=== PATIENT | male | born 2000 | race Caucasian/White ===

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

== ENCOUNTER 2019-11-02 14:17 | Emergency (ER) | payer BC, SELFPAY ==
[2019-11-02 14:25] VITALS: BP 139/84; PULSE 95; RESP 19; TEMP 36.6; O2SAT 99; BMI 27.7
--- NOTE | 2019-11-02 14:34 | HMH.EDUTC ---
[facility] [place] Disposition Clinical Impression: Right upper quadrant abdominal pain Disposition: Home, Self-Care Condition on Discharge: Good Instructions: DI for Abdominal Pain-Adult Additional Instructions: Return to clinic/ER if pain worsens, vomiting is severe, fever, etc. Call PCP Monday to schedule RUQ US Prescriptions: Dicyclomine HCl [Bentyl 10mg capsule] 10 mg PO QID #40 cap [facility] Ondansetron [Ondansetron Odt 8mg Tab] 8 mg PO TID PRN #30 tab PRN Reason: Nausea Transmission Status: [facility] Referrals: Humberto Tidwell [Primary Care Provider] - Time of Disposition: 14:38 Medical Decision Making - Dhiraj Inquiry Pt receiving controlled substance: No Vital Signs: 11/02/19 14:25 Temperature 97.8 F Temperature Source Oral Pulse Rate [Radial] 95 H Respiratory Rate 19 Blood Pressure [Right Arm] 139/84 Blood Pressure Mean [Right Arm] 102 Blood Pressure Source [Right Arm] Automatic Cuff Blood Pressure Position [Right Arm] Sitting 02 Sat by Pulse Oximetry 99 Oxygen Delivery Method Room Air [facility] [place] HPI - General Stated complaint: abd nausa Time Seen by Provider: 11/02/19 14:34 Mode of Arrival: Ambulatory Source of Information: Patient Limitations: No Limitations Description of Symptoms (Recalled from Triage Doc. by RN): right upper quad pain that started this morning around 6 am. States that he has been nauseous. HEENT Symptoms (Recalled from RN notes): No Resp Symptoms (Recalled from RN notes): No Skin Symptoms (Recalled from RN notes): No MS Symptoms (Recalled from RN notes): No Functional Status (Recalled from RN notes): wnl - History of Present Illness Provider Complaint: Abdominal pain and nausea since early this am. No fever. No diarrhea. Hurts in right upper quadrant. No prior similar pain. Still has gallbladder. Ate chicken and fries last night. Onset (ago): hour(s) (8) Location: abdomen Quality: sharp Consistency: constant Associated symptoms: nausea/vomiting Treatments prior to arrival: none - Related Data Previous Rx's Medication Instructions Recorded Oseltamivir Phosphate [Tamiflu 75 mg PO BID #10 cap 04/01/17 75mg Capsule] Dicyclomine HCl [Bentyl 10mg 10 mg PO QID #40 cap 11/02/19 capsule] Ondansetron [Ondansetron Odt 8mg 8 mg PO TID PRN #30 tab 11/02/19 Tab] Allergies Allergy/AdvReac Type Severity Reaction Status Date / Time No Known Allergies Allergy Verified 04/16/17 15:32 - Worker's Comp Is this a Worker's Comp case?: No [facility] History - Hepatitis A Screen Drug use history?: No High risk sexual behaviors?: No History of sexually transmitted infection?: No Currently employed?: No Childcare worker?: No Do you have indoor plumbing?: Yes Do you have electricity?: Yes Attestation statement:: This patient has been screened for Hepatitis A risk factors. I have reviewed the patient's past medical history: Yes Medical History: Denies:: Cancer, Diabetes Mellitus Type 1, Diabetes Mellitus Type 2, MRSA Amputation: No Fractures: No - Social History Smoking Status: Never smoker Alcohol Intake: never Occupational Status: other Housing: house ROS Obtained: Yes All systems reviewed & no additional complaints - Gastrointestinal Gastrointestingal: Reports: abdominal pain, nausea, vomiting Physical Exam - General General appearance: alert, in no apparent distress - Head Head exam: normocephalic - Eye Eye exam: Present: PERRL - ENT ENT exam: Present: normal oropharynx - Respiratory Respiratory exam: Present: normal lung sounds bilaterally - Cardiovascular Cardiovascular exam: Present: regular rate, normal rhythm - Abdominal Exam Abdominal exam: Present: tenderness, Mcmanus's sign Abdominal tenderness: Present: RUQ - exam: Present: normal inspection - Extremities Exam Extremities exam: Present: normal inspection - Neurological Exam
[2019-11-02 14:44] VITALS: BP 139/84; PULSE 95; RESP 19; TEMP 36.6; O2SAT 99
== END 2019-11-02 14:45 | disposition home or self-care (01) ==
PROVIDERS: Emergency Provider Physician Assistant; PCP Family Medicine
DX: R10.11 Right upper quadrant pain (principal); R11.0 Nausea
CPT/HCPCS: 99201

== ENCOUNTER → 2019-11-08 09:18 | Outpatient (CLI) | payer BC, SELFPAY ==
--- NOTE | 2019-11-08 09:30 | US_ITS ---
PROCEDURE: US GALLBLADDER CLINICAL INDICATION: abdominal pain Right upper quadrant pain with nausea COMPARISON: No exams were available for comparison FINDINGS: Pancreas: Unremarkable/Not well seen Liver: Unremarkable. There is appropriate direction of blood flow within a non dilated portal vein. Right kidney: Unremarkable appearing. No hydronephrosis. Gallbladder: Gallbladder is filled with stones. Gallbladder wall is slightly thickened at 5 mm. Common bile duct is normal at 3 mm. There is questionable minimal amount of pericholecystic fluid. IMPRESSION: Cholelithiasis with mildly thickened gallbladder wall and questionable minimal pericholecystic fluid Dictated by: Colin Rizo MD 11/08/2019 10:12 Colin Rizo MD in [place] 11/08/2019 10:12
== END ==
PROVIDERS: PCP Family Medicine; Visit Provider Nurse Practitioner Family
DX: R10.11 Right upper quadrant pain (principal)
CPT/HCPCS: 76705

== ENCOUNTER → 2019-12-04 14:00 | Outpatient (CLI) | payer BC, SELFPAY ==
[2019-12-04 14:23] LABS: Basophils % 0.6 % (0.1-2.0); Eosinophils # 0.1 K/mm3 (0.0-0.4); Eosinophils % 1.2 % (0.1-12.0); Hematocrit 48.4 % (42.0-52.0); Hemoglobin 16.3 g/dL (14.1-18.0); Lymphocytes # 1.7 K/mm3 (0.7-4.5); Lymphocytes % 25.8 % (10-50); Mean Corpuscular HGB Conc 33.7 g/dL (31.8-35.4); Mean Corpuscular Hemoglobin 30.2 pg (27.0-31.2); Mean Corpuscular Volume 89.6 fl (80-94); Mean Platelet Volume 7.6 fl (7.4-10.4); Monocytes # 0.5 K/mm3 (0.1-1.0); Monocytes % 7.9 % (1.7-9.3); Neutrophils # 4.4 K/mm3 (1.8-7.8); Neutrophils % 64.6 % (37.0-80.0); Platelet Count 220 K/mm3 (142-424); Red Cell Distribution Width 13.2 % (11.5-17.5); White Blood Count 6.7 K/mm3 (4.8-10.8)
[2019-12-04 14:59] LABS: Alanine Aminotransferase 20 U/L (12-78); Albumin Level 5.2 g/dl (3.5-5.0); Albumin/Globulin Ratio 1.7 (1.1-1.8); Alkaline Phosphatase 68 U/L (38-126); Anion Gap 14.2 mEq/L (5-15); Aspartate Amino Transferase 19 U/L (17-59); Bilirubin,Total 0.8 mg/dl (0.2-1.3); Blood Urea Nitrogen 9 mg/dl (9-20); Calcium 10.8 mg/dl (8.4-10.2); Carbon Dioxide 29 mmol/L (22.0-30.0); Chloride 103 mmol/L (98-107); Estimated Glomerular Filt Rate 107 ml/min (>60); GFR (African American) 129 ML/MIN (>60); Globulin 3.1 g/dL (1.3-3.2); Glucose 95 mg/dl (74-100); Potassium 4.2 mmoL/L (3.5-5.1); Sodium 142 mmol/L (136-145); Total Protein,Serum 8.3 g/dl (6.3-8.2)
[2019-12-04 15:51] LABS: Coronavirus 19 IgG Antibody Positive (Negative); Coronavirus 19 IgM Antibody Negative (Negative)
== END ==
PROVIDERS: Visit Provider Surgery
DX: Z01.818 Encounter for other preprocedural examination (principal); R10.11 Right upper quadrant pain
CPT/HCPCS: 36415; 80053; 85025; 86328

== ENCOUNTER 2019-12-06 07:52 | Day surgery (SDC) | payer BC, SELFPAY ==
[2019-12-04 12:38] VITALS: BMI 26.4
[2019-12-06] VITALS (14 sets, daily range): BP systolic 101–169; BP diastolic 57–94; PULSE 81–110; RESP 16–18; TEMP 36.3–43; O2SAT 91–98
--- NOTE | 2019-12-06 10:51 | SUR.OPER ---
1051-family updated at this time
--- NOTE | 2019-12-06 11:44 | HMH.OPNOTE ---
Date of procedure: 12/06/19 Pre-op Diagnosis:: Chronic calculus cholecystitis Post-op Diagnosis:: Same Procedure performed:: Laparoscopic cholecystectomy Surgeon:: Joe Ramirez MD VICE PRESIDENT INTEGRATED:: Alton Gregory Anesthesia: GETA Estimated blood loss (mL): 15 Operative findings:: Elongated/distended gallbladder with severe chronic inflammatory changes Dense adhesions throughout infundibulum and mid gallbladder region Distended infundibulum Dome down approach utilized secondary to above findings Operative note:: After informed consent was obtained, the patient was taken to the operating room and placed in the supine position. General anesthesia was induced and the abdomen was prepped and draped in a sterile fashion. After infiltration with local anesthetic an infraumbilical incision was made. A Veress needle was placed in position. The abdomen was insufflated. A 5 mm optical trocar was placed in position. Under direct visualization, a 12 mm trocar was placed in the subxiphoid position and 2 additional 5 mm trocars were placed in the right upper quadrant. The gallbladder was elevated up and over the liver margin. The gallbladder was very elongated with chronic inflammatory changes throughout the mid gallbladder and around the infundibular region. The tissue around the cystic artery was carefully dissected. 2 clips were placed proximally and the artery was transected with harmonic calin.The gallbladder had significant extension laterally which made visualization very difficult. Overlying omentum was densely adhered to this entire region. Careful dissection with harmonic calin and bluntly was utilized to free the surrounding tissue. The infundibulum was very distended and the decision was made to proceed with a dome down approach. A window was made behind the gallbladder/infundibular region. Harmonic calin were then utilized to dissect the gallbladder away from the liver. The gallbladder and multiple large stones were placed in a retrieval bag and removed through the subxiphoid trocar site. The right upper quadrant was thoroughly irrigated. No active bleeding or bile leak was noted. Fascia at the subxiphoid trocar site was reapproximated utilizing 0 Ethibond. The remaining trocars were removed. All wounds were irrigated and skin was closed with 4-0 Monocryl in a subcuticular fashion. Steri-Strips were applied. The patient's anesthetic agents were reversed and extubation was completed prior to transfer to recovery in stable condition. Condition: stable Disposition: PACU Specimens:: Gallbladder and contents Complications:: No immediate
--- NOTE | 2019-12-06 11:59 | P.PN_ITS ---
[facility] Anesthesia Checklist - Patient Identification Patient Identification: Arm Band, Verbal (Name & ) - Structural Data Admitted From: Home Planned Operative Procedure/s: lap choly Consent for Planned Operative Procedure(s) Verified: Yes Verified Documents: History and Physical - NPO Status Verified Time NPO: 00:00 - Chart Verification Results Verified: CBC, BMP - Additional verifications Patient : No Anesthesia Reactions: No Hx Blood Transfusions: No Blood Transfusion Reaction: No Cephalosporin Allergy: No Previous Colonoscopy: No - Cardiovascular Assessment Heart Sounds: S1 & S2 Pulse Strength: Baseline Pulse Rhythm: Regular Peripheral Edema: No - Airway Assessment C-Spine Mobility Assessed: Yes TMJ Mobility Assessed: Yes Dentition: Good Dentition - Neurological Assessment Level of Consciousness: Awake, Alert, Appropriate Hx Seizures: No Numbness or tingling in extremities: No - Anesthesia Plan Anesthesia Risk discussed: Yes ASA Class: I Anesthesia Type: General [facility] History I have reviewed the patient's past medical history: Yes Medical History: Denies:: Cancer, Diabetes Mellitus Type 1, Diabetes Mellitus Type 2, MRSA, Seizures *Have you ever received a pneumonia vaccine?: No *Have you received a flu vaccine this season?: No Other Medical History: Denies: Blood Transfusion Reaction Anesthesia experience/problems:: none Other Surgeries: Yes: No Previous Surgery Amputation: No Fractures: No - *Social History Last grade of school completed: Some college Smoking Status: Never smoker Alcohol Intake: current Alcohol Intake Frequency:: holidays/special occasions only Substance Use Type: denies use *Occupational Status:: student Housing: house Household Members: family *Travel in the last 8 weeks: None Family Hx:: No significant family history
--- NOTE | 2019-12-06 12:00 | P.PN_ITS ---
[facility] Anesthesia Record Part I Intake, IV Amount: 1,000 Estimated blood loss (mL): 10 Urine output (mL): 0 Blood Products used (#): none Blood Pressure: 147/75 SaO2: 91 Pulse Rate: 110 Respiratory Rate: 18 Temperature: 97.7 F Patient is:: Drowsy, Stable Stable to PACU at:: 11:56
--- NOTE | 2019-12-06 12:13 | SUR.PHASEI ---
1156-pt to pacu via stretcher. Report recieved from Jaziel and Laurence. Pt is very sleepy. Nods head to answer questions but does not open eyes. #20 iv noted in left hand. Respirations are easy and unlabored. NSR noted. Pt to be tachycardiac. 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 vss.
--- NOTE | 2019-12-06 13:43 | HMH.ANESII ---
[facility] Anesthesia Record Part II Discharge Time: 12:26 Destination: Surgical Day Care (OP Surgery) PACU nurse assessment reviewed?: Yes Patient Condition:: Good Anesthesia Complications:: None Swallowing reflex intact?: Yes Cyanosis?: No Blood Pressure: 105/65 Pulse Rate: 83 Temperature: 97.3 F Mental Status: Alert & Oriented Pain level:: 3 Nausea and/or vomitting:: None Intake, IV Amount: 50
--- NOTE | 2019-12-06 15:00 | SUR.PHASEI ---
1215-- cold juwan hugger placed on pt for comfort measures.
== END 2019-12-06 14:16 | disposition home or self-care (01) ==
LOC: OR 07:55
PROVIDERS: PCP Nurse Practitioner Family; Visit Provider Surgery
PROC: 0FT44ZZ Resection of Gallbladder, Percutaneous Endoscopic Approach (ICD-10-PCS; CPT 47562; principal; 2019-12-06 09:45)
DX: K80.10 Calculus of gallbladder with chronic cholecystitis without obstruction (principal); K82.8 Other specified diseases of gallbladder; K66.0 Peritoneal adhesions (postprocedural) (postinfection)
CPT/HCPCS: 47562; 96374; J2405

== ENCOUNTER 2020-01-27 13:33 | Emergency (ER) | payer BC, SELFPAY ==
[2020-01-27 13:42] VITALS: BP 158/86; PULSE 104; RESP 16; TEMP 36.8; O2SAT 100; BMI 28.3
--- NOTE | 2020-01-27 13:44 | US_ITS ---
PROCEDURE: US ABDOMEN LIMITED CLINICAL INDICATION: jaundice s/p cholecystectomy COMPARISON: US US GALLBLADDER from 11/08/2019 FINDINGS: PANCREAS: Unremarkable. No obvious mass or abnormal fluid collection. No ductal dilatation LIVER: No focal liver lesions demonstrated. Homogeneous echogenicity. No intrahepatic biliary ductal dilatation evident. There is appropriate direction of blood flow within a non dilated portal vein RIGHT KIDNEY: Unremarkable. Normal size and echogenicity. No hydronephrosis GALLBLADDER: Prior cholecystectomy. The gall see the common duct is normal at 5 mm. IMPRESSION: Prior cholecystectomy otherwise negative. No biliary dilatation. Dictated by: Colin Rizo MD 01/27/2020 15:02 Colin Rizo MD in [place] 01/27/2020 15:02
--- NOTE | 2020-01-27 13:55 | PC.NURSE ---
Pt going up for US
--- NOTE | 2020-01-27 14:15 | PC.NURSE ---
PT returned from US
--- NOTE | 2020-01-27 14:23 | PC.NURSE ---
speaking with Dr. Ramirez
--- NOTE | 2020-01-27 14:28 | HMH.EDGENADL ---
ED Disposition Clinical Impression: Jaundice Disposition: Home, Self-Care Condition on Discharge: Good Additional Instructions: Do not eat/drink anything after 11:59 pm on Monday. Go to Dr. Ramirez's office on Monday and follow up with Dr. Marks in GI. Referrals: Bunny Vizcarra APRN [Primary Care Provider] - Pancho Marks MD [Staff Physician] - Joe Ramirez MD [Staff Physician] - - Critical Care Critical Care Time: No Attestation: On 01/27/20, the high probability of a clinically significant, sudden or life threatening deterioration of the following system(s) required my full and direct attention, intervention and personal management. The time I documented below is in addition to time spent performing reported procedures but includes the following listed in this critical care notation. Medical Decision Making - Medical Records Medical records reviewed: Yes: I reviewed the patient's medical records. - Dhiraj Inquiry Pt receiving controlled substance: No Vital Signs: 01/27/20 13:42 01/27/20 15:00 01/27/20 15:35 Temperature 98.3 F 98.2 F Temperature Source Oral Oral Pulse Rate 87 Pulse Rate [Right] 104 H 74 Respiratory Rate 16 16 16 Blood Pressure 118/70 Blood Pressure [Right Arm] 158/86 H 118/75 Blood Pressure Mean [Right Arm] 110 89 Blood Pressure Source Automatic Cuff Blood Pressure Source [Right Arm] Automatic Cuff Automatic Cuff Blood Pressure Position Sitting Blood Pressure Position [Right Arm] Sitting Sitting 02 Sat by Pulse Oximetry 100 99 Oxygen Delivery Method Room Air Room Air Room Air - Lab Data Lab Results 01/27/20 14:22: WBC 5.7, RBC 5.09, Hgb 16.3, Hct 45.9, MCV 90.2, MCH 32.0 H, MCHC 35.5 H, RDW 13.4, Plt Count 216, MPV 7.8, Neut % (Auto) 61.4, Lymph % (Auto) 28.5, [place] % (Auto) 6.7, Eos % (Auto) 2.7, Baso % (Auto) 0.8, Neut # (Auto) 3.5, Lymph # (Auto) 1.6, [place] # (Auto) 0.4, Eos # (Auto) 0.2, Baso # (Auto) 0.1 01/27/20 14:22: Sodium 141, Potassium 4.2, Chloride 101, Carbon Dioxide 31 H, Anion Gap 13.2, BUN 12, Creatinine 0.70, Estimated Creat Clear 230, Estimated GFR 142, Est GFR ( Amer) 172, Glucose 113 H, Calcium 10.7 H, Total Bilirubin 3.0 H, Direct Bilirubin 1.9 H, AST 98 H, ALT 210 H, Alkaline Phosphatase 120, Total Protein 9.0 H, Albumin 5.1 H, Globulin 3.9 H, Albumin/Globulin Ratio 1.3, Lipase 63 01/27/20 14:25: Urine Color Yellow, Urine Appearance Clear, Urine pH 6.0, Ur Specific [place] 1.010, Urine Protein Negative, Urine Glucose (UA) Negative, Urine Ketones Negative, Urine Blood Negative, Urine Nitrate Negative, Urine Bilirubin 1+ A, Urine Urobilinogen 2.0, Ur Leukocyte Esterase Negative, Urine WBC 3-5, Ur Squamous Epith Cells 3-5 Result diagrams: 01/27/20 14:22 01/27/20 14:22 Medical Decision Narrative: The patient is a 19 year old male s/p ccy who presents to the ED with jaundice. He is awake, alert, stable. He has mild scleral icterus on exam but otherwise benign. No abdominal pain. US RUQ obtained which does not show retained stone. Labs including CBC, CMP, lipase, UA were obtained and conjugated bilirubin. Dr. Ramirez was contacted who recommended GI consult for possible ERCP. Spoke with Dr. Marks who will see him outpatient. Dr. Ramirez will follow up with patient Monday AM for repeat labs. Discussed with patient who is in agreement. Will discharge home with return precautions. General Adult HPI - General Chief complaint: Recheck/Abnormal Lab/Rx Stated complaint: gallbladder surgery issues Time Seen by Provider: 01/27/20 13:42 Mode of Arrival: Ambulatory Limitations: No Limitations Description of Symptoms (Recalled from ER Triage Doc. by RN): PT advises he had gallbladder surgery on 12/05 ever since then he has had dark urine, yellowing eyes, and light stools. - History of Present Illness HPI narrative: The patient is a 19 year old male who is s/p cholecystectomy who presents to the ED with jaundice. The patient states his surger
[2020-01-27 14:31] LABS: Microscopic, Urine URINE MICROSCOPIC (MICROSCOPIC)
[2020-01-27 14:34] LABS: Basophils # 0.1 K/mm3 (0-0.2); Basophils % 0.8 % (0.1-2.0); Eosinophils # 0.2 K/mm3 (0.0-0.4); Eosinophils % 2.7 % (0.1-12.0); Hematocrit 45.9 % (42.0-52.0); Hemoglobin 16.3 g/dL (14.1-18.0); Lymphocytes # 1.6 K/mm3 (0.7-4.5); Lymphocytes % 28.5 % (10-50); Mean Corpuscular HGB Conc 35.5 g/dL (31.8-35.4); Mean Corpuscular Volume 90.2 fl (80-94); Mean Platelet Volume 7.8 fl (7.4-10.4); Monocytes # 0.4 K/mm3 (0.1-1.0); Monocytes % 6.7 % (1.7-9.3); Neutrophils # 3.5 K/mm3 (1.8-7.8); Neutrophils % 61.4 % (37.0-80.0); Platelet Count 216 K/mm3 (142-424); Red Blood Count 5.09 M/mm3 (4.60-6.20); Red Cell Distribution Width 13.4 % (11.5-17.5); White Blood Count 5.7 K/mm3 (4.8-10.8)
[2020-01-27 14:40] LABS: Appearance,Urine CLEAR (Clear); Blood, Urine Negative (Negative); Color,Urine YELLOW (Yellow); Glucose,Urine (UA) Negative (Negative); Ketones,Urine Negative (Negative); Leukocyte Esterase,Urine Negative (Negative); Nitrate,Urine Negative (Negative); Protein,Urine Negative (Negative)
[2020-01-27 14:50] LABS: Chloride 101 mmol/L (98-107); Potassium 4.2 mmoL/L (3.5-5.1); Sodium 141 mmol/L (136-145)
[2020-01-27 14:51] LABS: Bilirubin,Urine 1+ (Negative)
[2020-01-27 14:52] LABS: Alanine Aminotransferase 210 U/L (12-78); Anion Gap 13.2 mEq/L (5-15); Aspartate Amino Transferase 98 U/L (17-59); Blood Urea Nitrogen 12 mg/dl (9-20); Carbon Dioxide 31 mmol/L (22.0-30.0); Creatinine Clearance Estimated 230 mL/min (50-200); Estimated Glomerular Filt Rate 142 ml/min (>60); GFR (African American) 172 ML/MIN (>60)
[2020-01-27 14:53] LABS: Albumin Level 5.1 g/dl (3.5-5.0); Albumin/Globulin Ratio 1.3 (1.1-1.8); Alkaline Phosphatase 120 U/L (38-126); Bilirubin,Direct 1.9 mg/dl (0.0-0.4); Calcium 10.7 mg/dl (8.4-10.2); Globulin 3.9 g/dL (1.3-3.2); Glucose 113 mg/dl (74-100); Lipase 63 U/L (23-300)
[2020-01-27 15:00] VITALS: BP 118/75; PULSE 74; RESP 16; O2SAT 99
--- NOTE | 2020-01-27 15:00 | PC.NURSE ---
Dr Marks on with Dr Allen
--- NOTE | 2020-01-27 15:01 | PC.NURSE ---
speaking with Dr. Marks
[2020-01-27 15:35] VITALS: BP 118/70; PULSE 87; RESP 16; TEMP 36.8; O2SAT 98
== END 2020-01-27 15:38 | disposition home or self-care (01) ==
PROVIDERS: Emergency Provider Emergency Medicine; PCP Nurse Practitioner Family
DX: R17 Unspecified jaundice (principal)
CPT/HCPCS: 76705; 80053; 81001; 82248; 83690; 85025; 99283

== ENCOUNTER → 2020-01-29 08:31 | Outpatient (CLI) | payer BC, SELFPAY ==
[2020-01-29 09:06] LABS: Basophils # 0.1 K/mm3 (0-0.2); Basophils % 0.8 % (0.1-2.0); Eosinophils # 0.2 K/mm3 (0.0-0.4); Eosinophils % 2.7 % (0.1-12.0); Hematocrit 44.1 % (42.0-52.0); Lymphocytes # 2.3 K/mm3 (0.7-4.5); Lymphocytes % 34.2 % (10-50); Mean Corpuscular HGB Conc 34.1 g/dL (31.8-35.4); Mean Corpuscular Volume 91.1 fl (80-94); Mean Platelet Volume 7.8 fl (7.4-10.4); Monocytes # 0.5 K/mm3 (0.1-1.0); Monocytes % 6.7 % (1.7-9.3); Neutrophils # 3.7 K/mm3 (1.8-7.8); Neutrophils % 55.6 % (37.0-80.0); Platelet Count 229 K/mm3 (142-424); Red Blood Count 4.84 M/mm3 (4.60-6.20); Red Cell Distribution Width 13.4 % (11.5-17.5); White Blood Count 6.7 K/mm3 (4.8-10.8)
[2020-01-29 09:13] LABS: Chloride 106 mmol/L (98-107); Potassium 4.4 mmoL/L (3.5-5.1); Sodium 143 mmol/L (136-145)
[2020-01-29 09:15] LABS: Alanine Aminotransferase 168 U/L (12-78); Aspartate Amino Transferase 66 U/L (17-59); Blood Urea Nitrogen 11 mg/dl (9-20); Estimated Glomerular Filt Rate 122 ml/min (>60); GFR (African American) 148 ML/MIN (>60)
[2020-01-29 09:16] LABS: Albumin Level 4.9 g/dl (3.5-5.0); Albumin/Globulin Ratio 1.5 (1.1-1.8); Alkaline Phosphatase 108 U/L (38-126); Anion Gap 12.4 mEq/L (5-15); Bilirubin,Total 2.5 mg/dl (0.2-1.3); Calcium 10.6 mg/dl (8.4-10.2); Carbon Dioxide 29 mmol/L (22.0-30.0); Globulin 3.2 g/dL (1.3-3.2); Glucose 116 mg/dl (74-100); Total Protein,Serum 8.1 g/dl (6.3-8.2)
[2020-01-31 08:55] LABS: Coronavirus 19 IgG Antibody Positive (Negative); Coronavirus 19 IgM Antibody Negative (Negative)
== END ==
PROVIDERS: Internal Medicine Gastroenterology; Visit Provider Surgery
DX: R10.11 Right upper quadrant pain (principal); Z01.818 Encounter for other preprocedural examination; Z86.19 Personal history of other infectious and parasitic diseases
CPT/HCPCS: 36415; 80053; 85025; 86328

== ENCOUNTER 2020-01-31 10:14 | Day surgery (SDC) | payer BC, SELFPAY ==
[2020-01-28 11:03] VITALS: BMI 28.3
[2020-01-31] VITALS (8 sets, daily range): BP systolic 114–145; BP diastolic 66–91; PULSE 57–81; RESP 18; TEMP 36.2–36.3; O2SAT 97–100
--- NOTE | 2020-01-31 11:30 | FL_ITS ---
PROCEDURE: FL ERCP CLINICAL INDICATION: elevated liver enzymes Status post cholecystectomy, elevated bilirubin with malaise COMPARISON: No exams were available for comparison FINDINGS: Fluoroscopy time: 2 minutes and 12 seconds No common duct stones evident. Common bile duct measures approximately 8 mm slightly prominent. Unremarkable pancreatic duct in the head of the pancreas. Pancreatic duct was not completely opacified. No common duct stones apparent. There has been a prior cholecystectomy. IMPRESSION: No common duct stones or other significant anomalies apparent Dictated by: Colin Rizo MD 01/31/2020 15:58 Colin Rizo MD in [place] 01/31/2020 15:58
--- NOTE | 2020-01-31 12:24 | HMH.PROC ---
[facility] Procedure Note Procedure Note:: ERCP procedure Report: Endoscopic retrograde cholangiopancreatography with biliary sphincterotomy and balloon extraction Endoscopist: Pancho Marks II, MD Referring Physician: Joe Ramirez M.D.,/Sulma RODRIGUEZ Date of Procedure: January 31, 2020 Equipment: Olympus 180 side viewing endoscope duodenoscope Sedation: MAC sedation Indication: Mr. Galicia is a 19-year-old gentleman who had an ultrasound on November 08, 2019 because of some right upper quadrant abdominal pain and nausea. He had gallstones with a mildly thickened gallbladder wall and questionable minimal pericholecystic fluid. He underwent laparoscopic cholecystectomy (Dr. Joe Ramirez) on December 06, 2019. At that time, he did have severe chronic inflammatory changes with dense adhesions through the infundibulum and mid gallbladder region with evidence of chronic calculus cholecystitis. There were multiple large stones removed. The patient has had some malaise. Recently, his lab work from January 27, 2020 showed a total bilirubin of 3.0 (direct bilirubin 1.9), ALT 210 and alkaline phosphatase 120. The patient has had some darkened urine and acholic stools. He reports no abdominal pain. He has not had any viral infection or new medication. Procedure: Prior to the procedure, a history and physical exam was performed, and patient's medications and allergies were reviewed. The risks, benefits and alternatives of the sedation and procedure were discussed with the patient. All questions were answered and informed consent was obtained. The patient was brought to the fluoroscopic radiology room. Patient identification and proposed procedure were verified by the physician and the nurse. The patient was placed in a swimmer's position between left lateral decubitus and prone position and the scope was passed under direct vision. Throughout the procedure, the patient's blood pressure, pulse, and oxygen saturations were monitored continuously. The ERCP was accomplished without difficulty. The patient tolerated the procedure well. Findings: The side-viewing duodenal scope was passed directly into the upper esophagus and advanced to the second portion of the duodenum. The ampulla was bulging and readily seen. Initially, the pancreatic duct was cannulated. A pancreatogram showed normal filling of the head body and tail the pancreas with a 2 to 3 mm pancreatic duct and no ductular ectasias. Next, the common bile duct was cannulated. The cholangiogram did show a 8 to 9 mm common bile duct which was mildly dilated. The cholangiogram did not show any stricturing or filling defects and the intrahepatic biliary system was normal. The cystic duct stump was normal with no leak or other abnormality. There was delayed drainage of contrast and bile from the biliary system with tapering at the sphincter of Oddi. Because of the delayed drainage, biliary sphincterotomy was performed. There was excellent extravasation of bile. There was minimal debris identified. A 9 to 12 mm balloon was inflated to 9 mm for sweeping and this was swept through the biliary system once with the passage of mostly boss bile and no debris. The procedure was then ended. There was no heme noted. The patient was given Indocin suppository subsequently for prophylaxis. Impression: 1. 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 Normal pancreatogram 3. Normal upper digestive tract Plan: I will discuss the findings with the patient and family. I do feel that he had some biliary drainage abnormality which is likely sphincter of Oddi. This minor hyperbilirubinemia could be intrahepatic cholestasis from a reactive injury (virus or something ingested). He does not take anything new in regard to medication. His jaundice has resolved.
[2020-01-31 13:53] LABS: Alanine Aminotransferase 138 U/L (12-78); Albumin Level 4.4 g/dl (3.5-5.0); Albumin/Globulin Ratio 1.4 (1.1-1.8); Alkaline Phosphatase 99 U/L (38-126); Anion Gap 9.3 mEq/L (5-15); Aspartate Amino Transferase 59 U/L (17-59); Blood Urea Nitrogen 10 mg/dl (9-20); Carbon Dioxide 29 mmol/L (22.0-30.0); Chloride 104 mmol/L (98-107); Creatinine Clearance Estimated 201 mL/min (50-200); Estimated Glomerular Filt Rate 122 ml/min (>60); GFR (African American) 148 ML/MIN (>60); Globulin 3.2 g/dL (1.3-3.2); Glucose 117 mg/dl (74-100); Potassium 4.3 mmoL/L (3.5-5.1); Sodium 138 mmol/L (136-145); Total Protein,Serum 7.6 g/dl (6.3-8.2)
--- NOTE | 2020-01-31 14:06 | HMH.ANESCL ---
[facility] Anesthesia Checklist - Patient Identification Patient Identification: Arm Band, Verbal (Name & ) - Structural Data Admitted From: Home Planned Operative Procedure/s: ERCP Consent for Planned Operative Procedure(s) Verified: Yes Verified Documents: Surgical Consent, History and Physical - NPO Status Verified Time NPO: 00:00 - Chart Verification Results Verified: CBC, BMP - Additional verifications Anesthesia Reactions: No Hx Blood Transfusions: No Blood Transfusion Reaction: No - Airway Assessment C-Spine Mobility Assessed: Yes TMJ Mobility Assessed: Yes Dentition: Good Dentition - Neurological Assessment Level of Consciousness: Awake, Alert, Appropriate, Follows Commands Hx Seizures: No Numbness or tingling in extremities: No - Anesthesia Plan Anesthesia Risk discussed: Yes Anesthesia Plan: Verified ASA Class: I Anesthesia Type: MAC [facility] History I have reviewed the patient's past medical history: Yes Medical History: Denies:: Cancer, Diabetes Mellitus Type 1, Diabetes Mellitus Type 2, Internal Pacemaker, MRSA, Seizures *Have you ever received a pneumonia vaccine?: No *Have you received a flu vaccine this season?: Yes Other Medical History: Denies: Blood Transfusion Reaction Anesthesia experience/problems:: None Other Surgeries: Yes: Cholecystectomy. No: Pacemaker Amputation: No Fractures: No - *Social History Last grade of school completed: Some college Smoking Status: Never smoker Alcohol Intake: current Alcohol Intake Frequency:: holidays/special occasions only Substance Use Type: denies use *Occupational Status:: student Housing: house Household Members: family *Travel in the last 8 weeks: None Family Hx:: Coronary Artery Disease, Diabetes
[2020-01-31 14:31] LABS: Ferritin 173 ng/ml (17.9-464)
[2020-01-31 15:05] LABS: C-Reactive Protein < 0.3 mg/L (0-4)
[2020-02-03 16:11] LABS: Actin (Smooth Muscle) Antibody 5 Units (0-19); Mitochondrial (M2) Antibody <20.0 Units (0.0-20.0)
[2020-02-04 10:27] LABS: Angiotensin Converting Enzyme 26 U/L (14-82)
[2020-02-12 14:35] LABS: Antinuclear Antibodies (ANA) Negative
== END 2020-01-31 13:35 | disposition home or self-care (01) ==
LOC: OUTP 10:15
PROVIDERS: PCP Nurse Practitioner Family; Visit Provider Internal Medicine Gastroenterology
PROC: (CPT 43262; principal; 2020-01-31 11:30)
DX: K86.9 Disease of pancreas, unspecified (principal); Z87.19 Personal history of other diseases of the digestive system; Z83.3 Family history of diabetes mellitus; Z82.49 Family history of ischemic heart disease and other diseases of the circulatory system
CPT/HCPCS: 43262; 36415; 74330; 80053; 82164; 82728; 86038; 86140; 86255; 86256; J1610; Q9967